=== PATIENT | male | born 1965 | race Caucasian/White ===

== ENCOUNTER 2020-05-27 22:19 | Emergency (ER) | payer OTHER ==
[~2020-05-27] VITALS: Ht 190.5 cm; Wt 102.1 kg
[2020-05-28] MEDS ORDERED: HYDROCODON-ACE1 EA12 PO (01:01)
[2020-05-28 01:10] VITALS: BP 145/80
[2020-05-28] MEDS ORDERED: TYLENOL # 31 EA PO (02:09)
== END 2020-05-28 01:10 | disposition home or self-care (01) ==
LOC: FSED 23:38
DX: K08.89 Other specified disorders of teeth and supporting structures (principal); S02.5XXA Fracture of tooth (traumatic), initial encounter for closed fracture
CPT/HCPCS: 99282